=== PATIENT | male | born 1955 | race Two or more races ===

== ENCOUNTER 2023-08-23 16:24 | Emergency (ER) | payer OTHER ==
[~2023-08-23] VITALS: Ht 165.1 cm; Wt 113.4 kg
[2023-08-23] MEDS ORDERED: PROSCAR5 MG PO (16:29)
== END 2023-08-24 01:10 | disposition home or self-care (01) ==
LOC: ER 16:24
DX: M54.89 Other dorsalgia (principal); M51.36 Other intervertebral disc degeneration, lumbar region; E11.9 Type 2 diabetes mellitus without complications; I10 Essential (primary) hypertension
CPT/HCPCS: 72131; 96372; 99284; J1885; J3490

== ENCOUNTER 2023-09-21 12:08 | Emergency (ER) | payer OTHER ==
[~2023-09-21] VITALS: Ht 165.1 cm; Wt 116.1 kg
[~2023-09-21 12:08] MED LIST: PROSCAR5 MG PO
[2023-09-21 15:26] LABS: HEMATOCRIT 34.2 % (39.0-48.0); HEMOGLOBIN 11.1 g/dL (13-16.00); MEAN CORPUSCULAR HEMOGLOBIN 26.1 pg (27.00-32.0); MEAN CORPUSCULAR HGB CONC 32.6 g/dl (32.0-36.0); PLATELET COUNT 130 K/uL (150-450); RED BLOOD COUNT 4.27 M/uL (4.00-6.00)
[2023-09-21 15:27] LABS: URINE APPEARANCE Clear; URINE BILIRRUBIN Negative (NEGATIVE); URINE BLOOD Negative; URINE COLOR Yellow; URINE GLUCOSE Negative (NEGATIVE); URINE LEUKOCYTE Negative; URINE NITRATE Negative; URINE PROTEIN 30 (NEGATIVE); URINE UROBILINOGEN 0.2 E.U./dl
[2023-09-21 15:31] LABS: URINE BACTERIA 12.5 uL (0.0-1933); URINE EPITHELIAL CELLS 1.6 uL (0.0-38.8); URINE RBC 2.1 uL (0.0-20.8)
[2023-09-21 15:35] LABS: URINE WBC 0.9 uL (0.0-23.2)
[2023-09-21 16:08] LABS: ALBUMIN 3.1 gm/dL (3.4-5.0); BILIRUBIN TOTAL 0.35 mg/dL (0.3-1.2); CALCIUM 9.1 mg/dL (8.5-10.1); CREATININE SERUM 1.52 mg/dL (0.70-1.30); GFR 45.97; GLOBULINA 4.2 G/DL (2.4-3.5); POTASSIUM 5.72 mEq/L (3.5-5.1); TOTAL PROTEIN 7.3 gm/dL (6.4-8.2)
[2023-09-21] MEDS ORDERED: CEFADROXIL500 MG PO (16:13)
[2023-09-21] MEDS ORDERED: KETO10TA2 PO (16:13)
== END 2023-09-21 17:09 | disposition home or self-care (01) ==
LOC: ER
PROVIDERS: General Practice
DX: Z00.01 Encounter for general adult medical examination with abnormal findings (principal); E87.5 Hyperkalemia